=== PATIENT | female | born 1975 | race Caucasian/White ===

== ENCOUNTER → 2019-07-15 | Emergency (ER) | payer MEDICAID, OTHER ==
[~2019-07-15] VITALS: Ht 157.5 cm; Wt 58.1 kg
[~2019-07-15] MED LIST: ASPIRIN 81 MG TAB.CHEW PO ONE; BUSP5TAB3 PO; LEVO25TA11 PO; LOSA25TA3 PO; METHOTREXATE PO; METO25TA3 PO; NITROGLYCERIN 1 INCH (GM) OINT. TP ONE; REMERON PO; SERT100T PO; SERTRALINE PO; VITD2000 PO; ZOLP10TA2 PO; [UNRECOGNIZED DRUG - CODE] PO; [UNRECOGNIZED DRUG - OTHER] PO
[2019-07-15 11:00] VITALS: BP_SYST 110
[2019-07-15 11:52] LABS: BILIRUBIN,URINE NEGATIVE (NEGATIVE); BLOOD, URINE 3+ (NEGATIVE); CLARITY/URINE CLEAR (CLEAR); COLOR,URINE YELLOW (YELLOW); GLUCOSE,URINE NEGATIVE (NEGATIVE); KETONES,URINE NEGATIVE (NEGATIVE); LEUKOCYTE ESTERASE ,URINE NEGATIVE (NEGATIVE); NITRITE, URINE NEGATIVE (NEGATIVE); PH,URINE 5.5 (5.0-8.0); PROTEIN URINE NEGATIVE (NEGATIVE); UROBILINOGEN,URINE 0.2 (0.2-1.0)
[2019-07-15 12:03] LABS: BASOPHILS % (AUTO) 0.4 % (0.0-2.0); EOSINOPHILS # (AUTO) 0.1 K/uL (0.0-0.4); EOSINOPHILS % (AUTO) 1.8 % (0.0-4.0); HEMATOCRIT 41.7 % (36-48); HEMOGLOBIN 13.8 g/dL (12.0-16.0); LYMPHOCYTES # (AUTO) 0.7 K/uL (1.0-5.5); LYMPHOCYTES % (AUTO) 9.8 % (20.5-51.5); MEAN CORPUSCULAR HEMOGLOBIN 29 pg (27-31); MEAN CORPUSCULAR HGB CONC 33 % (32-36); MEAN CORPUSCULAR VOLUME 89 fL (79.0-98.0); MONOCYTES # (AUTO) 0.8 K/uL (0.0-1.0); MONOCYTES % (AUTO) 10.6 % (1.7-9.3); NEUTROPHILS # (AUTO) 5.7 K/uL (1.8-7.7); NEUTROPHILS % (AUTO) 77.4 % (40.0-70.0); PLATELET COUNT (AUTO) 202 K/uL (130-430); RED BLOOD CELL COUNT(AUTO) 4.69 MIL/uL (4.2-6.2); RED CELL DISTRIBUTION WIDTH 13.6 % (9.0-15.0); WHITE BLOOD COUNT (AUTO) 7.4 K/uL (4.8-10.8)
[2019-07-15 12:11] LABS: PROTHROMBIN TIME 10.5 SECS (9.5-12.5)
[2019-07-15 12:15] LABS: BACTERIA,URINE FEW /HPF (None Seen); MUCUS,URINE None Seen /LPF (None Seen); WBC,URINE 0-3 /HPF (0-3)
[2019-07-15 12:34] LABS: CALCIUM 8.9 mg/dL (8.4-11.0); CREATININE 0.72 mg/dL (0.55-1.30); POTASSIUM 4.3 mmol/L (3.5-5.1)
[2019-07-15 12:40] LABS: ALBUMIN 3.8 g/dL (3.4-4.8); TOTAL BILIRUBIN 0.9 mg/dL (0.0-1.0)
== END | disposition still patient (30) ==
LOC: SED 10:45
DX: R07.89 Other chest pain (principal); J44.9 Chronic obstructive pulmonary disease, unspecified; Z79.899 Other long term (current) drug therapy; Z88.8 Allergy status to other drugs, medicaments and biological substances
CPT/HCPCS: 36415; 71045; 74018; 80053; 81000-TC; 83880; 84484; 85025; 85610-TC; 93005; 99284

== ENCOUNTER 2019-07-22 14:37 | Inpatient (IN) | payer MEDICAID ==
[~2019-07-22] VITALS: Ht 157.5 cm; Wt 58.1 kg
[2019-07-22 14:37] VITALS: BP_SYST 117
[~2019-07-22 14:37] MED LIST changes: -ASPIRIN 81 MG TAB.CHEW PO ONE; -LOSA25TA3 PO; -METO25TA3 PO; -NITROGLYCERIN 1 INCH (GM) OINT. TP ONE; -VITD2000 PO
--- NOTE | 2019-07-22 14:37 | NUR ---
Placed in room 8 . Placed on manager of radiology, blood pressure machine and pulse oximeter. To gown for exam. Side rails up. Report given to TANVIR Alvares.
--- NOTE | 2019-07-22 14:40 | NUR ---
Pt AAOx4 ambulated into ED c/o 07/13 mid chest pain that began this morning upon waking. Reports weakness and nausea. Denies vomiting/diarrhea. Skin pink dry and warm, breathing even and unlabored. No other injuries/complaints per pt/noted. Will continue to monitor.
--- NOTE | 2019-07-22 15:39 | NUR ---
# 20 gauge angiocath placed to RAC . Use of asceptic technique. Opsite placed over site. Blood return noted. Blood for lab drawn from site. Flushed with 10 cc of normal saline. No evidence of infiltration noted. Patient tolerated well.
--- NOTE | 2019-07-22 15:40 | NUR ---
ER at bedside examining patient.
--- NOTE | 2019-07-22 15:50 | NUR ---
Urine specimen collected and given to lab. collected using midstream clean-catch method
[2019-07-22 16:03] LABS: BASOPHILS % (AUTO) 0.6 % (0.0-2.0); EOSINOPHILS # (AUTO) 0.1 K/uL (0.0-0.4); EOSINOPHILS % (AUTO) 2.4 % (0.0-4.0); HEMATOCRIT 43.9 % (36-48); HEMOGLOBIN 14.5 g/dL (12.0-16.0); LYMPHOCYTES # (AUTO) 1.2 K/uL (1.0-5.5); LYMPHOCYTES % (AUTO) 24.6 % (20.5-51.5); MEAN CORPUSCULAR HEMOGLOBIN 29 pg (27-31); MEAN CORPUSCULAR HGB CONC 33 % (32-36); MEAN CORPUSCULAR VOLUME 89 fL (79.0-98.0); MONOCYTES # (AUTO) 0.6 K/uL (0.0-1.0); MONOCYTES % (AUTO) 11.6 % (1.7-9.3); NEUTROPHILS # (AUTO) 3.1 K/uL (1.8-7.7); NEUTROPHILS % (AUTO) 60.8 % (40.0-70.0); PLATELET COUNT (AUTO) 231 K/uL (130-430); RED BLOOD CELL COUNT(AUTO) 4.95 MIL/uL (4.2-6.2); RED CELL DISTRIBUTION WIDTH 13.7 % (9.0-15.0)
[2019-07-22 16:30] LABS: ALBUMIN 4.1 g/dL (3.4-4.8); CREATININE 0.82 mg/dL (0.55-1.30); TOTAL BILIRUBIN 0.5 mg/dL (0.0-1.0)
--- NOTE | 2019-07-22 16:30 | NUR ---
Troponin pending. Lab reports machine is down at this time. Will have extended wait time. Patient informed.
--- NOTE | 2019-07-22 18:31 | NUR ---
Pt resting in bed comfortably. No acute distress noted. VSS, will continue to monitor. Pt given additional pillow for comfort, warm blanket replaced
[2019-07-22] MEDS ORDERED: NACL 0.9% 1,000 ML IV ONE (19:15)
--- NOTE | 2019-07-22 20:38 | NUR ---
Pt's BUZZ, called and would like to be updated in any change in pt condition.
[2019-07-22 20:51] LABS: CALCIUM 9.5 mg/dL (8.4-11.0)
--- NOTE | 2019-07-22 21:53 | NUR ---
ER at bedside examining patient, explaining results of labs and tests, discussing care
[2019-07-22] MEDS ORDERED: ASPIRIN 325 MG TABLET PO ONE (22:00)
--- NOTE | 2019-07-22 23:13 | NUR ---
Pt resting in bed comfortably. Alert and Oriented x4. Pt denies any additional complaints at this time.
[2019-07-23] MEDS ORDERED: MORPHINE 2 MG/ML INJ. SYRINGE IVP ONE (00:30)
--- NOTE | 2019-07-23 00:53 | NUR ---
Patient will be admitted to [facility]. Admitted to Tele unit. Will go to room 135. Belongings list completed. Summary report printed. Report will be given at bedside.
--- NOTE | 2019-07-23 00:53 | NUR ---
Transfer to Telemetry Bed 135 via ACLS protocol. Licensed nurse present. IV present no signs or symptoms of infiltration.
--- NOTE | 2019-07-23 01:00 | NUR ---
initial notes: pt is awake, alert, oriented x 4. c/o of chest pain mid chest pressure like. not distress. no sob. vital sign are with in normal limit. iv lock to right ac gauge 20 intact and patent. no skin breakdown.. ambulatory. discuss to pt medication and plan of care. pt verbalized understanding. orient to room and call light. needs attended call light in reach. will monitor. Addendum: 07/23/19 at 0631 by Espinoza Cadena RN notes for 2am
[2019-07-23 01:20] VITALS: BP_SYST 115
--- NOTE | 2019-07-23 01:26 | NUR ---
ADMIT NOTE Received pt from ER to the floor with a diagnosis of chest pain, rule out ACS. Admission process initiated. patient oriented to pain management, safety and call light-teach back done.
--- NOTE | 2019-07-23 04:00 | NUR ---
sleeping on his side. no sob. no pain. stable. will monitor.
[2019-07-23] MEDS ORDERED: HYDROcodone/ACETAMIN 5-325 MG TAB (NORCO/ VICODIN) PO PRN (04:30)
[2019-07-23] MEDS ORDERED: ACETAMINOPHEN 325 MG TABLET PO PRN (04:30)
[2019-07-23] MEDS ORDERED: ONDANSETRON HCL 4 MG/2 ML VIAL IVP PRN (04:30)
--- NOTE | 2019-07-23 06:00 | NUR ---
sleeping on her side. stable. non labored breathing. stable. will monitor.
--- NOTE | 2019-07-23 06:59 | NUR ---
closing: pt is awake, alert. stable. no pain.no sob. iv lock intact.needs attended. call light in reach. bedside report given to am rn.
[2019-07-23 07:11] LABS: ANION GAP 4 (5-15); CALCIUM 8.2 mg/dL (8.4-11.0); CHLORIDE 105 mmol/L (98-107); CREATININE 0.72 mg/dL (0.55-1.30); GLUCOSE 79 mg/dL (70-99); POTASSIUM 3.5 mmol/L (3.5-5.1); SODIUM SERUM 140 mmol/L (136-145); UREA NITROGEN, BLOOD 9 mg/dL (8-21)
[2019-07-23 07:15] LABS: GFR AFRICAN AMERICAN 112 mL/min (>90)
[2019-07-23 07:25] LABS: AMYLASE 72 U/L (0-100); PHOSPHORUS 2.8 mg/dL (2.7-4.5); THYROID STIMULATING HORMONE 2.06 uIu/mL (0.36-3.74)
--- NOTE | 2019-07-23 07:25 | NUR ---
Opening Note received bedside SBAR report from key account director RN, patient resting in bed, no acute distress noted, respirations even and unlabored on room air, patient denies any chest pain, educated patient on use of call light and asked to call for assistance, patient verbalized understanding, call light in reach, educated patient on use of bed alarm for patient safety, patient refusing bed alarm, bed in low and locked position.
[2019-07-23 08:00] VITALS: BP_SYST 120
[2019-07-23 08:14] LABS: BASOPHILS % (AUTO) 0.5 % (0.0-2.0); EOSINOPHILS # (AUTO) 0.2 K/uL (0.0-0.4); HEMATOCRIT 41.5 % (36-48); HEMOGLOBIN 13.8 g/dL (12.0-16.0); LYMPHOCYTES # (AUTO) 1.5 K/uL (1.0-5.5); LYMPHOCYTES % (AUTO) 27.5 % (20.5-51.5); MEAN CORPUSCULAR HEMOGLOBIN 30 pg (27-31); MEAN CORPUSCULAR HGB CONC 33 % (32-36); MEAN CORPUSCULAR VOLUME 88 fL (79.0-98.0); MONOCYTES # (AUTO) 0.6 K/uL (0.0-1.0); MONOCYTES % (AUTO) 10.5 % (1.7-9.3); NEUTROPHILS # (AUTO) 3.2 K/uL (1.8-7.7); NEUTROPHILS % (AUTO) 58.5 % (40.0-70.0); PLATELET COUNT (AUTO) 201 K/uL (130-430); RED BLOOD CELL COUNT(AUTO) 4.69 MIL/uL (4.2-6.2); RED CELL DISTRIBUTION WIDTH 13.5 % (9.0-15.0); WHITE BLOOD COUNT (AUTO) 5.5 K/uL (4.8-10.8)
[2019-07-23] MEDS: DOCUSATE SODIUM 100 MG CAPSULE PO SCH ×2 (09:00→21:00)
[2019-07-23] MEDS ORDERED: FLU VACC QS2019-20 36MOS UP/PF 60 MCG/0.5 ML SYRINGE I.M. PRN (09:00)
[2019-07-23 09:11] LABS: INR 1.1 (0.8-1.2); PROTHROMBIN TIME 10.7 SECS (9.5-12.5)
[2019-07-23] MEDS: HEPARIN SODIUM,PORCINE 5000 UNITS/ML VIAL SUBCUT SCH ×2 (09:36→21:00)
[2019-07-23] MEDS ORDERED: METO25TA3 PO (09:44)
[2019-07-23] MEDS ORDERED: LOSA25TA3 PO (09:44)
[2019-07-23] MEDS ORDERED: VITD2000 PO (09:44)
--- NOTE | 2019-07-23 09:45 | NUR ---
Ambulated to bathroom patient ambulated to bathroom, steady gait noted, voided x1, patient ambulated back to bed, patient resting in bed, patient reports pain is controlled at this time.
[2019-07-23 10:21] LABS: CHOLESTEROL 154 mg/dL (<200); HDL CHOLESTEROL 44 mg/dL (>55); LDL CHOLESTEROL 99 mg/dL (<100); TRIGLYCERIDES 110 mg/dL (30-150)
--- NOTE | 2019-07-23 10:41 | NUR ---
CONSULT SURGERY HIATAL HERNIA DR ROSS [phone] S/W ANITHA BLUM
--- NOTE | 2019-07-23 11:00 | NUR ---
Physician Rounds Dr. Perez at bedside examining and speaking with patient.
[2019-07-23 12:00] VITALS: BP_SYST 93
--- NOTE | 2019-07-23 12:05 | NUR ---
Physician Rounds Rounds with Dr. Velasquez, informed Dr. Velasquez of patients current BP 93/66, HR 87, okay per Dr. Velasquez, no new orders, patient sitting up in bed, patient denies any dizziness, no acute distress noted.
[2019-07-23 12:34] LABS: BILIRUBIN,URINE NEGATIVE (NEGATIVE); BLOOD, URINE 1+ (NEGATIVE); CLARITY/URINE CLEAR (CLEAR); COLOR,URINE YELLOW (YELLOW); GLUCOSE,URINE NEGATIVE (NEGATIVE); KETONES,URINE NEGATIVE (NEGATIVE); LEUKOCYTE ESTERASE ,URINE NEGATIVE (NEGATIVE); NITRITE, URINE NEGATIVE (NEGATIVE); PROTEIN URINE NEGATIVE (NEGATIVE); UROBILINOGEN,URINE 0.2 (0.2-1.0)
[2019-07-23 12:42] LABS: BARBITURATE, URINE NEGATIVE (NEG <=200); BENZODIAZEPINE, URINE NEGATIVE (NEG <=150); CANNABINOID, URINE NEGATIVE (NEG <=50); COCAINE, URINE NEGATIVE (NEG <=150); METHAMPHETAMINES SCREEN,URINE NEGATIVE (NEG <=500); OPIATE, URINE POSITIVE (NEG <=100); PHENCYCLIDINE SCREEN,URINE NEGATIVE (NEG <=25); UR TRICYCLIC ANTIDEPRESSANTS NEGATIVE (NEG <=300); URINE AMPHETAMINE NEGATIVE (NEG <=500); URINE METHADONE NEGATIVE (NEG <=200); URINE OXYCODONE SCREEN NEGATIVE (NEG <=100); URINE PROPOXYPHENE SCREEN NEGATIVE (NEG <=300)
[2019-07-23] MEDS: DIPHENHYDRAMINE HCL 25 MG CAPSULE PO PRN ×2 (13:34→22:53)
[2019-07-23 13:46] LABS: BACTERIA,URINE FEW /HPF (None Seen); RBC,URINE 0-3 /HPF (0-3); WBC,URINE 0-3 /HPF (0-3)
--- NOTE | 2019-07-23 15:10 | NUR ---
RN Rounds patient resting in bed, patient reports pain is controlled at this time, no acute distress noted.
[2019-07-23 17:35] VITALS: BP_SYST 93
--- NOTE | 2019-07-23 17:41 | NUR ---
RN Rounds patient sitting up in bed, patient reports pain and nausea are controlled at this time, provided patient with water, no additional needs at this time.
--- NOTE | 2019-07-23 19:05 | NUR ---
Closing Note bedside SBAR report given to receiving RN, patient resting in bed, no acute distress noted, patient reports pain is controlled, educated patient on use of call light and asked to call for assistance, patient verbalized understanding, call light in reach, educated patient on use of bed alarm for patient safety, patient refusing bed alarm, bed in low and locked position, care endorsed to rn vascular RN.
[2019-07-23 22:22] VITALS: BP_SYST 99
[2019-07-24 00:12] VITALS: BP_SYST 95
[2019-07-24 04:00] VITALS: BP_SYST 115
[2019-07-24] MEDS: LEVOTHYROXINE SODIUM 0.088 MG TABLET PO SCH ×2 (06:00→07:15)
--- NOTE | 2019-07-24 06:56 | NUR ---
Nutrition Update Bhupendra Scale 14 noted. Pt admitted for Chest Pain, Rule out Acute Coronary Syndrome Diet: Cardiac BMI: 23.4 kg/m2 RD to follow per nutrition care standards.
[2019-07-24 07:07] LABS: BASOPHILS % (AUTO) 0.5 % (0.0-2.0); EOSINOPHILS # (AUTO) 0.1 K/uL (0.0-0.4); EOSINOPHILS % (AUTO) 2.4 % (0.0-4.0); HEMATOCRIT 40.5 % (36-48); HEMOGLOBIN 13.4 g/dL (12.0-16.0); LYMPHOCYTES # (AUTO) 1.2 K/uL (1.0-5.5); LYMPHOCYTES % (AUTO) 22.7 % (20.5-51.5); MEAN CORPUSCULAR HEMOGLOBIN 29 pg (27-31); MEAN CORPUSCULAR HGB CONC 33 % (32-36); MEAN CORPUSCULAR VOLUME 88 fL (79.0-98.0); MONOCYTES # (AUTO) 0.6 K/uL (0.0-1.0); MONOCYTES % (AUTO) 11.3 % (1.7-9.3); NEUTROPHILS # (AUTO) 3.4 K/uL (1.8-7.7); NEUTROPHILS % (AUTO) 63.1 % (40.0-70.0); PLATELET COUNT (AUTO) 199 K/uL (130-430); RED BLOOD CELL COUNT(AUTO) 4.58 MIL/uL (4.2-6.2); RED CELL DISTRIBUTION WIDTH 13.4 % (9.0-15.0); WHITE BLOOD COUNT (AUTO) 5.4 K/uL (4.8-10.8)
[2019-07-24 07:40] LABS: CREATININE 0.77 mg/dL (0.55-1.30); POTASSIUM 3.3 mmol/L (3.5-5.1)
[2019-07-24 08:00] VITALS: BP_SYST 93
--- NOTE | 2019-07-24 08:00 | NUR ---
RN INITIAL NOTES RECEIVED PATIENT IN BED ALERT AWAKE AND VERBAL NO DISTRESS NO CHEST PAIN , DR MATOS CALLED AND WANTS ME TO CALL XRAY TO VERIFY PATIENT RESULT .TO R/O HERNIA FILLER IN SAID TO INFORM DR MATOS TO CALL RADIOLOGIST DR EDGAR . RESP EVEN AND UNLABORED
[2019-07-24 08:20] LABS: CALCIUM 8.5 mg/dL (8.4-11.0)
[2019-07-24] MEDS ORDERED: ZOLPIDEM TARTRATE 5 MG TABLET PO PRN (08:30)
[2019-07-24] MEDS ORDERED: MUPIROCIN 2% TOPICAL OINTMENT 22 GM NS PRN (08:30)
[2019-07-24] MEDS ORDERED: ACETAMINOPHEN 325 MG TABLET PO PRN (08:30)
[2019-07-24] MEDS ORDERED: MAGNESIUM SULFATE 50 ML IV PRN (08:30)
[2019-07-24] MEDS ORDERED: ONDANSETRON HCL 4 MG/2 ML VIAL IVP PRN (08:30)
[2019-07-24] MEDS ORDERED: MORPHINE 2 MG/ML INJ. SYRINGE IVP PRN ×2 (08:30)
[2019-07-24] MEDS ORDERED: POTASSIUM CHLORIDE 20 MEQ TAB.PRT.SR PO PRN (08:30)
[2019-07-24] MEDS ORDERED: DOCUSATE SODIUM 100 MG CAPSULE PO PRN (08:30)
[2019-07-24] MEDS ORDERED: LORazepam 2 MG/ML VIAL IVP PRN (08:30)
[2019-07-24] MEDS ORDERED: METOPROLOL SUCCINATE 25 MG TAB.SR.24H (TOPROL XL) PO SCH (09:00)
[2019-07-24] MEDS: HEPARIN SODIUM,PORCINE 5000 UNITS/ML VIAL SUBCUT SCH (09:00)
[2019-07-24] MEDS: DOCUSATE SODIUM 100 MG CAPSULE PO SCH (09:12)
--- NOTE | 2019-07-24 11:00 | NUR ---
DR SHAWNA MATOS SPOKE WITH DR EDGAR AND DISCUSSED WITH PATIENT DC TODAY TO CONT HOME MEDS AND FOLLOW UP WITH PCP IN I WEEK , PATIENT AWARE AND STATED SHE WILL GO HOME THIS PM
[2019-07-24 11:22] VITALS: BP_SYST 98
[2019-07-24 11:27] VITALS: BP_SYST 109
--- NOTE | 2019-07-24 13:30 | NUR ---
D/C Patient Patient given medication reconciliation form and D/C instructions. Exit Care provided. Patient verbalized understanding. MD discussed with patient the results and treatment provided. Ambulatory with steady gait for discharge to home. Patient in stable condition, patient advised to follow up with pcp and patient stated she will call her pcp in [facility] and for [facility] app[facility] too,she said \she will come and ask for her medicalrecords , ID band removed. IV catheter removed, intact and dressing applied, no active bleeding. Rx of given. Patient educated on pain management. All belongings sent with patient.
== END 2019-07-24 13:30 | disposition home or self-care (01) | DRG 203 ==
LOC: SED 14:37 → STU 07-23 00:25
PROVIDERS: ADMIT Student in an Organized Health Care Education/Training Program; ATTEND Student in an Organized Health Care Education/Training Program
DX: R07.89 Other chest pain (principal); I11.0 Hypertensive heart disease with heart failure; I50.9 Heart failure, unspecified; K44.9 Diaphragmatic hernia without obstruction or gangrene; E03.9 Hypothyroidism, unspecified; J43.9 Emphysema, unspecified; I44.7 Left bundle-branch block, unspecified; Z85.6 Personal history of leukemia; Z85.71 Personal history of Hodgkin lymphoma; Z85.72 Personal history of non-Hodgkin lymphomas; Z92.21 Personal history of antineoplastic chemotherapy; Z98.891 History of uterine scar from previous surgery; Z79.890 Hormone replacement therapy
CPT/HCPCS: 36415; 71045; 80048; 80053; 80061; 80307; 81000-TC; 82150-TC; 82550-TC; 83036; 83735-TC; 83880; 84100-TC; 84443-TC; 84484; 85025; 85379; 85610-TC; 85730-TC; 93005; 93306; 93971; 96361; 96374; 99285; G0378; J1644; J2270; J2405; Q0163

== ENCOUNTER 2019-12-13 07:57 | Emergency (ER) | payer MEDICAID ==
[~2019-12-13] VITALS: Ht 157.5 cm; Wt 56.7 kg
[~2019-12-13 07:57] MED LIST changes: -BUSP5TAB3 PO; -METHOTREXATE PO; +METO25TA3 PO; -REMERON PO; -SERT100T PO; -SERTRALINE PO; +VITD2000 PO; -ZOLP10TA2 PO; -[UNRECOGNIZED DRUG - CODE] PO; -[UNRECOGNIZED DRUG - OTHER] PO
[2019-12-13 08:00] VITALS: BP_SYST 123
[2019-12-13 08:57] VITALS: BP_SYST 123
== END 2019-12-13 08:58 | disposition home or self-care (01) ==
LOC: SED 07:57
DX: J11.1 Influenza due to unidentified influenza virus with other respiratory manifestations (principal); J44.9 Chronic obstructive pulmonary disease, unspecified; Z88.8 Allergy status to other drugs, medicaments and biological substances; Z79.899 Other long term (current) drug therapy
CPT/HCPCS: 71045; 99283

== ENCOUNTER 2020-02-01 17:37 | Inpatient (IN) | payer MEDICAID ==
[~2020-02-01] VITALS: Ht 157.5 cm; Wt 56.9 kg
[2020-02-01 18:47] LABS: BASOPHILS % (AUTO) 0.3 % (0.0-2.0); EOSINOPHILS # (AUTO) 0.2 K/uL (0.0-0.4); EOSINOPHILS % (AUTO) 2.7 % (0.0-4.0); HEMATOCRIT 40.8 % (36-48); HEMOGLOBIN 13.4 g/dL (12.0-16.0); LYMPHOCYTES # (AUTO) 1.4 K/uL (1.0-5.5); LYMPHOCYTES % (AUTO) 22.8 % (20.5-51.5); MEAN CORPUSCULAR HEMOGLOBIN 29 pg (27-31); MEAN CORPUSCULAR HGB CONC 33 % (32-36); MEAN CORPUSCULAR VOLUME 89 fL (79.0-98.0); MONOCYTES # (AUTO) 0.7 K/uL (0.0-1.0); MONOCYTES % (AUTO) 12.4 % (1.7-9.3); NEUTROPHILS # (AUTO) 3.7 K/uL (1.8-7.7); NEUTROPHILS % (AUTO) 61.8 % (40.0-70.0); PLATELET COUNT (AUTO) 211 K/uL (130-430); RED BLOOD CELL COUNT(AUTO) 4.58 MIL/uL (4.2-6.2); RED CELL DISTRIBUTION WIDTH 13.9 % (9.0-15.0)
[2020-02-01 19:40] LABS: CREATININE 0.85 mg/dL (0.55-1.30); POTASSIUM 3.8 mmol/L (3.5-5.1)
[2020-02-01 19:47] LABS: ALBUMIN 3.3 g/dL (3.4-4.8); TOTAL BILIRUBIN 0.3 mg/dL (0.0-1.0)
[2020-02-01 19:59] VITALS: BP_SYST 102
[2020-02-01 21:58] VITALS: BP_SYST 93
[2020-02-01] MEDS ORDERED: HYDROcodone/ACETAMIN 5-325 MG TAB (NORCO/ VICODIN) PO PRN (22:30)
[2020-02-01] MEDS ORDERED: ALBUTEROL SULFATE 0.083% 2.5 MG/3 ML VIAL.NEB INH PRN (22:30)
[2020-02-01] MEDS ORDERED: ACETAMINOPHEN 325 MG TABLET PO PRN (23:00)
[2020-02-01 23:48] VITALS: BP_SYST 98
[2020-02-02 03:29] VITALS: BP_SYST 102
[2020-02-02 07:24] LABS: BASOPHILS % (AUTO) 0.6 % (0.0-2.0); EOSINOPHILS # (AUTO) 0.1 K/uL (0.0-0.4); EOSINOPHILS % (AUTO) 2.8 % (0.0-4.0); HEMATOCRIT 42.1 % (36-48); LYMPHOCYTES # (AUTO) 1.4 K/uL (1.0-5.5); LYMPHOCYTES % (AUTO) 27.4 % (20.5-51.5); MEAN CORPUSCULAR HEMOGLOBIN 29 pg (27-31); MEAN CORPUSCULAR HGB CONC 33 % (32-36); MEAN CORPUSCULAR VOLUME 88 fL (79.0-98.0); MONOCYTES # (AUTO) 0.6 K/uL (0.0-1.0); MONOCYTES % (AUTO) 11.3 % (1.7-9.3); NEUTROPHILS % (AUTO) 57.9 % (40.0-70.0); PLATELET COUNT (AUTO) 210 K/uL (130-430); RED BLOOD CELL COUNT(AUTO) 4.81 MIL/uL (4.2-6.2); RED CELL DISTRIBUTION WIDTH 14.1 % (9.0-15.0); WHITE BLOOD COUNT (AUTO) 5.1 K/uL (4.8-10.8)
[2020-02-02 08:00] VITALS: BP_SYST 96
[2020-02-02 08:14] LABS: ANION GAP 4 (5-15); CHLORIDE 100 mmol/L (98-107); POTASSIUM 4.2 mmol/L (3.5-5.1); SODIUM SERUM 135 mmol/L (136-145)
[2020-02-02 08:15] LABS: CALCIUM 8.7 mg/dL (8.4-11.0); CREATININE 0.82 mg/dL (0.55-1.30); GFR AFRICAN AMERICAN 97 mL/min (>90); GLUCOSE 89 mg/dL (70-99); TOTAL BILIRUBIN 0.6 mg/dL (0.0-1.0); UREA NITROGEN, BLOOD 16 mg/dL (8-21)
[2020-02-02 08:16] LABS: ALANINE AMINOTRANSFERASE 24 U/L (12-78); ASPARTATE AMINOTRANSFERASE 15 U/L (10-37)
[2020-02-02 08:17] LABS: ALBUMIN 3.8 g/dL (3.4-4.8); THYROID STIMULATING HORMONE 2.26 uIu/mL (0.34-4.82)
[2020-02-02] MEDS ORDERED: METOPROLOL SUCCINATE 25 MG TAB.SR.24H (TOPROL XL) PO SCH (09:00)
[2020-02-02] MEDS ORDERED: LEVOTHYROXINE SODIUM 0.025 MG TABLET PO SCH (09:00)
[2020-02-02 12:19] VITALS: BP_SYST 90
[2020-02-02 16:10] VITALS: BP_SYST 93
[2020-02-02 16:19] VITALS: BP_SYST 93
== END 2020-02-02 17:05 | disposition home or self-care (01) | DRG 194 ==
LOC: SED 17:37 → STU 21:14
PROVIDERS: ADMIT Internal Medicine Hospice and Palliative Medicine; ATTEND Internal Medicine Hospice and Palliative Medicine
DX: I50.41 Acute combined systolic (congestive) and diastolic (congestive) heart failure (principal); I95.9 Hypotension, unspecified; E44.1 Mild protein-calorie malnutrition; J43.9 Emphysema, unspecified; E03.9 Hypothyroidism, unspecified; F41.1 Generalized anxiety disorder; R07.89 Other chest pain; I34.0 Nonrheumatic mitral (valve) insufficiency; Z85.71 Personal history of Hodgkin lymphoma; Z85.6 Personal history of leukemia; Z92.21 Personal history of antineoplastic chemotherapy; Z92.3 Personal history of irradiation; Z98.891 History of uterine scar from previous surgery; Z91.041 Radiographic dye allergy status; Z79.899 Other long term (current) drug therapy; Z90.49 Acquired absence of other specified parts of digestive tract
CPT/HCPCS: 36415; 71045; 80053; 83880; 84443-TC; 84484; 85025; 87081; 93005; 93306; 99285; G0378

== ENCOUNTER 2020-10-05 11:05 | Emergency (ER) | payer MEDICAID, SELFPAY ==
[~2020-10-05] VITALS: Ht 157.5 cm; Wt 51.7 kg
[2020-10-05 11:05] VITALS: BP_SYST 112
--- NOTE | 2020-10-05 11:05 | NUR ---
TRIAGED IN TRIAGE TENT AND AWAITING ER BED
--- NOTE | 2020-10-05 12:00 | NUR ---
Pt brought by self, A&Ox4, pt presents to ER with chest pressure/discomfort, states Hx of CHF and leukemia, skin pink and warm, cap refill <3, VSS,respirations even and unlabored.
--- NOTE | 2020-10-05 12:20 | NUR ---
Dr Alberto evaluating patient at bedside
[2020-10-05 12:50] LABS: BASOPHILS % (AUTO) 0.7 % (0.0-2.0); EOSINOPHILS # (AUTO) 0.1 K/uL (0.0-0.4); EOSINOPHILS % (AUTO) 1.2 % (0.0-4.0); HEMATOCRIT 42.1 % (36-48); LYMPHOCYTES # (AUTO) 0.8 K/uL (1.0-5.5); LYMPHOCYTES % (AUTO) 15.5 % (20.5-51.5); MEAN CORPUSCULAR HEMOGLOBIN 30 pg (27-31); MEAN CORPUSCULAR HGB CONC 33 % (32-36); MEAN CORPUSCULAR VOLUME 90 fL (79.0-98.0); MONOCYTES # (AUTO) 0.6 K/uL (0.0-1.0); MONOCYTES % (AUTO) 11.1 % (1.7-9.3); NEUTROPHILS # (AUTO) 3.6 K/uL (1.8-7.7); NEUTROPHILS % (AUTO) 71.5 % (40.0-70.0); PLATELET COUNT (AUTO) 215 K/uL (130-430); RED BLOOD CELL COUNT(AUTO) 4.69 MIL/uL (4.2-6.2); RED CELL DISTRIBUTION WIDTH 13.8 % (9.0-15.0); WHITE BLOOD COUNT (AUTO) 5.1 K/uL (4.8-10.8)
[2020-10-05 13:11] LABS: ANION GAP 10 (5-15); CALCIUM 8.4 mg/dL (8.4-11.0); CHLORIDE 105 mmol/L (98-107); CREATININE 0.76 mg/dL (0.55-1.30); GLUCOSE 84 mg/dL (70-99); POTASSIUM 3.5 mmol/L (3.5-5.1); SODIUM SERUM 142 mmol/L (136-145); UREA NITROGEN, BLOOD 14 mg/dL (8-21)
[2020-10-05 13:14] LABS: GFR AFRICAN AMERICAN 105 mL/min (>90)
[2020-10-05 13:31] LABS: ALANINE AMINOTRANSFERASE 22 U/L (12-78); ALBUMIN 3.5 g/dL (3.4-4.8); ASPARTATE AMINOTRANSFERASE 14 U/L (10-37); BILIRUBIN,DIRECT 0.1 mg/dL (0.0-0.3); LIPASE 160 U/L (73-393); TOTAL BILIRUBIN 0.5 mg/dL (0.0-1.0)
[2020-10-05 13:33] LABS: FREE T4 (FREE THYROXINE) 1.2 ng/dL (0.6-1.6); HCG,QUANTITATIVE 1 mIU/ML (0-6); THYROID STIMULATING HORMONE 0.85 uIu/mL (0.34-4.82)
--- NOTE | 2020-10-05 14:12 | NUR ---
CALM, ALERT, RESP UNLABORED, SKIN WARM AND DRY. COMMUNICATES CLEARLY, STATED FEELING GOOD. NO DYSPNEA
--- NOTE | 2020-10-05 15:25 | NUR ---
Patient given written and verbal discharge instructions and verbalizes understanding. ER MD discussed with patient the results and treatment provided. Patient in stable condition. ID arm band removed. IV catheter removed intact and dressing applied, no active bleeding. Rx of NONE given. Patient educated on pain management and to follow up with PMD. Pain Scale 0/10 Opportunity for questions provided and answered.
[2020-10-05 15:45] VITALS: BP_SYST 115
== END 2020-10-05 15:25 | disposition home or self-care (01) ==
LOC: SED 11:05
DX: R07.89 Other chest pain (principal); J44.9 Chronic obstructive pulmonary disease, unspecified; E07.9 Disorder of thyroid, unspecified; I50.9 Heart failure, unspecified; Z79.899 Other long term (current) drug therapy; Z85.9 Personal history of malignant neoplasm, unspecified
CPT/HCPCS: 36415; 71045; 80048; 80076; 81025; 83690-TC; 83880; 84439; 84443-TC; 84484; 84702-TC; 85025; 85379; 93005; 99285

== ENCOUNTER 2020-11-04 14:58 | Emergency (ER) | payer MEDICAID, SELFPAY ==
[~2020-11-04] VITALS: Ht 157.5 cm; Wt 52.2 kg
[2020-11-04 15:08] VITALS: BP_SYST 105
--- NOTE | 2020-11-04 15:08 | NUR ---
Patient to ER bed 02 to gown for evaluation. Side rails up. Report given to TANVIR Poole
--- NOTE | 2020-11-04 15:11 | NUR ---
Patient brought in ambulatory from home complaining of sinus pain, right-sided headache, and nausea x10 days. Patient reports taking Benadryl Mucinex Excedrin with mild relief. Patient complains of pain 10 out of 10 to the right side of head. No other complaints per patient or as noted. will continue to monitor.
--- NOTE | 2020-11-04 15:40 | NUR ---
ER Dr. Loyola at bedside examining patient.
--- NOTE | 2020-11-04 16:05 | NUR ---
Patient given written and verbal discharge instructions and verbalizes understanding. ER MD discussed with patient the results and treatment provided. Patient in stable condition. ID arm band removed. Rx of Motrin, Zofran, Sudafed and Azithromycin given. Patient educated on pain management and to follow up with PMD. Pain Scale 0. Opportunity for questions provided and answered. Medication side effect fact sheet provided.
== END 2020-11-04 16:06 | disposition home or self-care (01) ==
LOC: SED 14:58
DX: J32.9 Chronic sinusitis, unspecified (principal); E07.9 Disorder of thyroid, unspecified; J44.9 Chronic obstructive pulmonary disease, unspecified; I11.0 Hypertensive heart disease with heart failure; Z79.899 Other long term (current) drug therapy; Z88.8 Allergy status to other drugs, medicaments and biological substances
CPT/HCPCS: 99283

== ENCOUNTER 2020-12-03 12:46 | Emergency (ER) | payer MEDICAID ==
[~2020-12-03] VITALS: Ht 157.5 cm; Wt 52.2 kg
[2020-12-03 12:52] VITALS: BP_SYST 97
[2020-12-03] MEDS ORDERED: PANTOPRAZOLE SODIUM 40 MG/VIAL (PROTONIX) IVP ONE (13:30)
[2020-12-03] MEDS ORDERED: NS 500 ML IV ONE (13:30)
[2020-12-03] MEDS ORDERED: KETOROLAC TROMETHAMINE 30 MG VIAL IVP ONE (13:30)
[2020-12-03 13:42] LABS: BILIRUBIN,URINE NEGATIVE (NEGATIVE); BLOOD, URINE 3+ (NEGATIVE); COLOR,URINE YELLOW (YELLOW); GLUCOSE,URINE NEGATIVE (NEGATIVE); KETONES,URINE 2+ (NEGATIVE); LEUKOCYTE ESTERASE ,URINE NEGATIVE (NEGATIVE); NITRITE, URINE NEGATIVE (NEGATIVE); PROTEIN URINE NEGATIVE (NEGATIVE); UROBILINOGEN,URINE 0.2 (0.2-1.0)
[2020-12-03] MEDS ORDERED: KETOROLAC TROMETHAMINE 30 MG VIAL ONE (13:53)
[2020-12-03 13:54] LABS: CLARITY/URINE HAZY (CLEAR)
[2020-12-03 13:56] LABS: BASOPHILS % (AUTO) 0.3 % (0.0-2.0); EOSINOPHILS # (AUTO) 0.1 K/uL (0.0-0.4); EOSINOPHILS % (AUTO) 1.2 % (0.0-4.0); HEMATOCRIT 42.6 % (36-48); HEMOGLOBIN 14.1 g/dL (12.0-16.0); LYMPHOCYTES # (AUTO) 1.1 K/uL (1.0-5.5); LYMPHOCYTES % (AUTO) 9.7 % (20.5-51.5); MEAN CORPUSCULAR HEMOGLOBIN 30 pg (27-31); MEAN CORPUSCULAR HGB CONC 33 % (32-36); MEAN CORPUSCULAR VOLUME 90 fL (79.0-98.0); MONOCYTES # (AUTO) 0.8 K/uL (0.0-1.0); MONOCYTES % (AUTO) 7.3 % (1.7-9.3); NEUTROPHILS # (AUTO) 9.2 K/uL (1.8-7.7); NEUTROPHILS % (AUTO) 81.5 % (40.0-70.0); PLATELET COUNT (AUTO) 180 K/uL (130-430); RED BLOOD CELL COUNT(AUTO) 4.74 MIL/uL (4.2-6.2); RED CELL DISTRIBUTION WIDTH 13.5 % (9.0-15.0); WHITE BLOOD COUNT (AUTO) 11.3 K/uL (4.8-10.8)
[2020-12-03 13:59] LABS: CALCIUM 9.8 mg/dL (8.4-11.0); CREATININE 0.85 mg/dL (0.55-1.30); POTASSIUM 3.6 mmol/L (3.5-5.1)
[2020-12-03 14:06] LABS: ALBUMIN 3.9 g/dL (3.4-4.8); BACTERIA,URINE FEW /HPF (None Seen); MUCUS,URINE 1+ /LPF (None Seen); TOTAL BILIRUBIN 0.6 mg/dL (0.0-1.0); WBC,URINE 0-3 /HPF (0-3)
[2020-12-03 16:55] VITALS: BP_SYST 100
== END 2020-12-03 16:52 | disposition home or self-care (01) ==
LOC: SED 12:46
DX: R10.84 Generalized abdominal pain (principal); J44.9 Chronic obstructive pulmonary disease, unspecified; E07.9 Disorder of thyroid, unspecified; I50.9 Heart failure, unspecified; Z90.49 Acquired absence of other specified parts of digestive tract
CPT/HCPCS: 36415; 71045; 81000; 80053; 83880; 84484; 85025; 93005; 96361; 96374; 96375; 99285; C9113; J1885; J7030

== ENCOUNTER 2021-01-08 21:46 | Emergency (ER) | payer MEDICAID ==
[~2021-01-08] VITALS: Ht 157.5 cm; Wt 51.7 kg
[2021-01-08 21:46] VITALS: BP_SYST 110
--- NOTE | 2021-01-08 21:46 | NUR ---
Patient to ER bed 2 to gown for evaluation. Side rails up. Report given to self.
--- NOTE | 2021-01-08 23:46 | NUR ---
Patient resting quietly. No acute distress noted. Vital signs within normal range. patient awaiting dental block medication to be administered by MD Rubio. positioned for comfort and comfort, bed to low position sr up, continue to monitor.
[2021-01-09] MEDS ORDERED: BUPIVACAINE /PF 0.25% 30 ML VIAL INJ ONE
[2021-01-09 00:25] VITALS: BP_SYST 138
--- NOTE | 2021-01-09 00:25 | NUR ---
Patient given written and verbal discharge instructions and verbalizes understanding. ER MD discussed with patient the results and treatment provided. Patient in stable condition. Rx of given. Patient educated on pain management and to follow up with PMD. Pain Scale 4 Opportunity for questions provided and answered. Medication side effect fact sheet provided.
== END 2021-01-09 00:25 | disposition home or self-care (01) ==
LOC: SED 21:46
DX: K08.89 Other specified disorders of teeth and supporting structures (principal); J44.9 Chronic obstructive pulmonary disease, unspecified; E07.9 Disorder of thyroid, unspecified; I50.9 Heart failure, unspecified; Z79.899 Other long term (current) drug therapy; Z88.8 Allergy status to other drugs, medicaments and biological substances
CPT/HCPCS: 99283; J3490